=== PATIENT | male | born 1955 | race Caucasian/White ===

== ENCOUNTER 2020-02-28 14:48 | Inpatient (IN) | payer OTHER ==
[2020-02-28] MEDS ORDERED: Morphine 4 MG/ML VIAL ONE (15:12)
--- NOTE | 2020-02-28 15:21 | RAD ---
Chest one view HISTORY: Chest pain. FINDINGS: No comparison. FINDINGS: Cardiac silhouette is magnified and upper limits of normal in size. Shallow inspiration accentuates pulmonary markings. Mediastinum is midline. Multiple irregular shaped and varying shaped metallic densities project over the upper mid chest and the left shoulder. Appearance of metallic shrapnel. Subtle ill-defined areas of patchy parenchymal opacity project over the periphery of the left lower l obe and the posterior aspect of the right lower lobe. No evidence of pneumothorax. IMPRESSION : Subtle patchy bibasilar infiltrates. Clinical correlation regarding other signs and symptoms of CHF v ersus multifocal viral pneumonitis is required.
[2020-02-28 15:32] LABS: #Eosinphils 0.1 thou/uL (0.0-0.7); #Lymphocytes 1.1 thou/uL (1.20-3.40); #Monocytes 0.9 thou/uL (0.11-0.59); #Neutrophils 8.2 thou/uL (1.40-6.50); %Basophils 0.2 % (0.0-1.0); %Lymphocytes 10.6 % (21.0-51.0); %Monocytes 8.9 % (0.0-10.0); %Neutrophils 79.4 % (42.0-75.0); Hemoglobin 15.5 g/dL (14.0-18.0); Mean Corpuscular HGB CONC 33.8 g/dL (32.0-36.0); Mean Corpuscular Hemoglobin 30.8 pg (27.0-31.0); Mean Corpuscular Volume 91.1 fL (78.0-98.0); Mean Platelet Volume 8.3 fL (7.4-10.4); Platelet Count 146 thou/uL (130-400); RBC Distribution Width 12.5 % (11.5-14.5); Red Blood Cell (RBC) Count 5.04 mill/uL (4.70-6.10); White Blood Cell (WBC) Count 10.3 thou/uL (4.8-10.8)
[2020-02-28 15:50] LABS: ALT (SGPT) 56 U/L (8-55); AST (SGOT) 31 U/L (5-34); Albumin 3.9 g/dL (3.4-4.8); Alkaline Phosphatase 70 U/L (40-110); Anion Gap 16 mmol/L (10-20); BUN (Urea Nitrogen) 22 mg/dL (8.4-25.7); CK (CPK) 238 U/L (30-200); Calc. Creatinine Clearance 0 mL/min (70-130); Calcium 9.4 mg/dL (7.8-10.44); Carbon Dioxide 30 mmol/L (23-31); Chloride 90 mmol/L (98-107); Estimated GFR-MDRD 53; Globulin 3.7 g/dL (2.4-3.5); Glucose 443 mg/dL (80-115); Lipase 25 U/L (8-78); Potassium 4.1 mmol/L (3.5-5.1); Protein, Total 7.6 g/dL (5.8-8.1); Sodium 132 mmol/L (136-145)
[2020-02-28] MEDS ORDERED: Dextrose 5% in Water 1,000 ML IV PRN (18:56)
[2020-02-28] MEDS ORDERED: Dextrose 50% Abboject 50 ML SYRINGE SLOW IVP PRN (18:56)
[2020-02-28] MEDS ORDERED: Ondansetron ODT 4 MG TAB PO PRN (19:00)
[2020-02-28] MEDS ORDERED: Acetaminophen 325 MG TAB PO PRN (19:00)
[2020-02-28] MEDS ORDERED: HYDROcodone/Acetaminophen 5/325 mg Tablet PO PRN ×2 (19:00)
[2020-02-28] MEDS ORDERED: Ondansetron PF 4 MG/2 ML Vial IVP PRN (19:00)
[2020-02-28] MEDS ORDERED: Nitroglycerin 0.4 MG TAB (25 Tab Bottle) PO PRN (19:00)
[2020-02-28] MEDS ORDERED: Ipratropium Oral Inhaler INH PRN (19:03)
[2020-02-28] MEDS ORDERED: Ventolin HFA Inhaler 60 PUFF INHALER INH PRN (19:03)
--- NOTE | 2020-02-28 19:07 | PDOC.FPRHP ---
- History of Present Illness Chief Complaint: Chest pain History of Present Illness: 64-year-old male with a past medical history significant for lymphedema insulin- dependent diabetes mellitus and prostate cancer mr. Santiago reports that for the past three days hes had intermittent chest pain that is pressure like in nature in the center of his chest. He denies this is better or worse with activity, laying flat or sitting up. He denies any syncope new onset dyspnea or palpitations. He has no known history of heart disease. he does report however that for the past couple days hes also been feeling poorly not having as much of an appetite and subjective malaise. Denies fever new cough sick contacts or known exposures. ED Course: levaquin, morphine - Allergies/Adverse Reactions Allergies Allergy/AdvReac Type Severity Reaction Status Date / Time No Known Allergies Allergy Verified 02/28/20 22:36 - Home Medications Medication Instructions Recorded Confirmed Type Cephalexin 500 mg PO Q8H 02/28/20 02/28/20 History Ergocalciferol [Drisdol] 1 cap PO SEEPHYS 02/28/20 02/28/20 History Finasteride [Proscar] 5 mg PO DAILY 02/28/20 02/28/20 History Gabapentin [Neurontin] 800 mg PO TID 02/28/20 02/28/20 History HYDROcodone/Acetaminophen [[place] 1 tab PO QID PRN 02/28/20 02/28/20 History 10-325 Tablet] Insulin Aspart [Novolog] 80 units SQ AC 02/28/20 02/28/20 History Losartan Potassium [Cozaar] 1.5 tab PO DAILY 02/28/20 02/28/20 History Saxagliptin HCl [Onglyza] 5 mg PO DAILY 02/28/20 02/28/20 History Tamsulosin HCl [Flomax] 0.4 mg PO DAILY 02/28/20 02/28/20 History Torsemide [Demadex] 3 tab PO DAILY 02/28/20 02/28/20 History tiZANidine HCl [Tizanidine HCl] 4 mg PO Q6H 02/28/20 02/28/20 History traZODone HCl [Trazodone HCl] 2 tab PO HS 02/28/20 02/28/20 History - History PMHx:lymphedema, chronic pain, IDDM, COPD on 2L, HTN, prostate, CA, HLD PSHx: multiple ortho FHx:nc Social:former smoker, no AD - Review of Systems General: denies: fever/chills, weight/appetite/sleep changes Eyes: denies: vision changes ENT: denies: nasal congestion Respiratory: reports: cough, shortness of breath Cardiovascular: reports: chest pain, paroxysmal nocturnal dyspnea, orthopnea. denies: palpitation, edema Gastrointestinal: denies: nausea, vomiting, diarrhea Genitourinary: denies: incontinence, dysuria Skin: denies: rashes, lesions Musculoskeletal: denies: pain, tenderness Neurological: denies: numbness, syncope - Vital signs 150/108, Pulse: 100, Resp: 20, Temp: 99.1 (Oral), Pain: 8, O2 sat: 93 on (3L Oxygen) - Physical Exam Constitutional: NAD, awake, alert and oriented HEENT: normocephalic and atraumatic, grossly normal vision, grossly normal hearing Neck: trachea midline Chest: no-tender to palpation, no lesions Heart: RRR, normal S1/S2 Lungs: no respiratory distress, no wheezing, other (poor air movement, Crackles RLL) Abdomen: soft, non-tender Musculoskeletal: normal structure, normal tone Neurological: no focal deficit, CN II-XII intact Skin: no rash/lesions Heme/Lymphatic: no unusual bruising or bleeding Psychiatric: normal mood and affect FMR H&P: Results - Labs Result Diagrams: 02/29/20 04:32 02/29/20 04:32 Lab results: WBC 10.3 thou/uL (4.8-10.8) 02/28/20 15:21 Hgb 15.5 g/dL (14.0-18.0) 02/28/20 15:21 Hct 45.9 % (42.0-52.0) 02/28/20 15:21 MCV 91.1 fL (78.0-98.0) 02/28/20 15:21 Plt Count 146 thou/uL (130-400) 02/28/20 15:21 Neutrophils % 79.4 % (42.0-75.0) H 02/28/20 15:21 Sodium 132 mmol/L (136-145) L 02/28/20 15:21 Potassium 4.1 mmol/L (3.5-5.1) 02/28/20 15:21 Chloride 90 mmol/L (98-107) L 02/28/20 15:21 Carbon Dioxide 30 mmol/L (23-31) 02/28/20 15:21 BUN 22 mg/dL (8.4-25.7) 02/28/20 15:21 Creatinine 1.35 mg/dL (0.7-1.3) H 02/28/20 15:21 Glucose 443 mg/dL (80-115) H 02/28/20 15:21 Calcium 9.4 mg/dL (7.8-10.44) 02/28/20 15:21 Total Bilirubin 1.0 mg/dL (0.2-1.2) 02/28/20 15:21 AST 31 U/L (5-34) 02/28/20 15:21 ALT 56 U/L (8-55) H 02/28/20 15:21 Alkaline Phosphatase 70 U/L (40-110) 02/28/20 15:21 Creatine Kinase 238 U/L (30-200) H 02/28/20 15:21 B-Natriuretic Peptide 48.5 pg/mL (0-100) 02/28/20 15:21 Serum Total Protein 7.6 g/dL (5.8-8.1) 02/28/20 15:21 Albumin 3.9 g/dL (3.4-4.8) 02/28/20 15:21 Lipase 25 U/L (8-78) 02/28/20 15:21 FMR H&P: A/P - Problem List (1) HLD (hyperlipidemia) Current Visit: Yes Status: Acute Code(s): E78.5 - HYPERLIPIDEMIA, UNSPECIFIED (2) IDDM (insulin dependent diabetes mellitus) Current Visit: Yes Status: Acute Code(s): [id number] - (3) Lymphedema Current Visit: Yes Status: Acute Code(s): I89.0 - LYMPHEDEMA, NOT ELSEWHERE CLASSIFIED (4) CAP (community acquired pneumonia) Current Visit: Yes Status: Acute Code(s): J18.9 - PNEUMONIA, UNSPECIFIED ORGANISM (5) Chest pain Current Visit: Yes Status: Acute Code(s): R07.9 - CHEST PAIN, UNSPECIFIED (6) RUMA (acute kidney injury) Current Visit: Yes Status: Acute Code(s): N17.9 - ACUTE KIDNEY FAILURE, UNSPECIFIED - Plan chest pain - ekg, trop wnl. cxr shows b/l pna, procal/wbc wnl, no fever. - broad ddx at this point includes acs, pna, covid, msk, gerd. - further work up and eval pending - empirically treat for cap with rocephin/azithro RUMA - IVF resusc. monitor Lymphedema - continue home meds IDDM - aware, Mild SSI - continue home meds HLD - aware, continue home meds pcp: CC ppx: lovenox code: full dispo: admit to tele obs for further work up, treat for cap. FMR H&P: Upper Level - Plan Date/Time: 02/28/201904 I, [], have evaluated this patient and agree with findings/plan as outlined by actuarial intern resident. Pertinent changes/additions are listed here. Addendum - Attending - Attending Attestation Date/Time: 02/28/20 5203 I personally evaluated the patient and discussed the management with Dr. Champagne I agree with the History, Examination, Assessment and Plan documented above with any addition or exceptions noted below - 64-year-old male with h/o lymphedema, insulin-dependent diabetes mellitus, and prostate cancer reports that for the past three days hes had intermittent chest pain that is pressure like in nature in the center of his chest. Does not change activity, laying flat or sitting up. It does worsen with deep breath. He denies any syncope new onset dyspnea or palpitations. He has no known history of heart disease. Does report feeling poorly And not having as much of an appetite and subjective malaise for last few days. Denies fever, cough or sick contacts or known exposures. PMH/PSH/Meds/SH reviewed and agree with resident's documentation. Afebrile BP 141/96 P91 RR22 93% on RA Exam repeated by me and agree with resident's documentation. Labs: H/H=15.5/45.9m Asn=899, In=459, K=4.1, BUN/Cr=22 /1.35, Wcbv=636, procal=0.09, ASt /ALT=31/56. CXR- bibasilar patchy infiltrates. A/P: 1) CAP- Place in obs. Continue Rocephin and zithromax, albuterol MDI. COVID swab pending. 2) DM- continue home meds and monitor accuchecks. 3) Chest pain- Check serial cardiac enzymes. Suspect related to pneumonia.
[2020-02-28] MEDS ORDERED: Lactated Ringer's 1,000 ML IV SCH (20:45)
[2020-02-28] MEDS: Azithromycin 500 MG in Sodium Chloride 0.9% 250 ML 250 ML IVPB SCH (21:26)
[2020-02-28] MEDS: cefTRIAXone\\ROCEPHIN 1 GM in Sodium Chloride 0.9% 100 ML IVPB SCH (22:44)
[2020-02-28] MEDS: HumaLOG 300 UNITS/3 ML VIAL SC PRN (22:45)
[2020-02-28] MEDS ORDERED: traZODone HCl 50 MG TAB PO SCH (23:45)
[2020-02-28] MEDS: tiZANidine HCl 4 MG TAB PO SCH (23:45)
[2020-02-28] MEDS ORDERED: Gabapentin 400 MG CAP PO SCH (23:45)
[2020-02-29 01:52] VITALS: BMI 72.2
[2020-02-29] MEDS ORDERED: Morphine 4 MG/ML VIAL SLOW IVP SCH (02:00)
[2020-02-29] MEDS ORDERED: Morphine 10 MG/ML VIAL SLOW IVP SCH (04:30)
[2020-02-29] MEDS: Nitroglycerin 0.4mg/Hour PATCH TD SCH (04:54)
[2020-02-29 04:58] LABS: #Eosinphils 0.2 thou/uL (0.0-0.7); #Lymphocytes 1.3 thou/uL (1.20-3.40); #Monocytes 0.8 thou/uL (0.11-0.59); %Basophils 0.4 % (0.0-1.0); %Eosinophils 2.9 % (0.0-10.0); %Lymphocytes 17.9 % (21.0-51.0); %Monocytes 11.3 % (0.0-10.0); %Neutrophils 67.5 % (42.0-75.0); Hemoglobin 14.8 g/dL (14.0-18.0); Mean Corpuscular HGB CONC 31.9 g/dL (32.0-36.0); Mean Corpuscular Hemoglobin 29.1 pg (27.0-31.0); Mean Corpuscular Volume 91.1 fL (78.0-98.0); Platelet Count 164 thou/uL (130-400); RBC Distribution Width 12.4 % (11.5-14.5); Red Blood Cell (RBC) Count 5.07 mill/uL (4.70-6.10); White Blood Cell (WBC) Count 7.4 thou/uL (4.8-10.8)
[2020-02-29 05:20] LABS: ALT (SGPT) 49 U/L (8-55); AST (SGOT) 31 U/L (5-34); Albumin 3.6 g/dL (3.4-4.8); Alkaline Phosphatase 63 U/L (40-110); Anion Gap 12 mmol/L (10-20); BUN (Urea Nitrogen) 17 mg/dL (8.4-25.7); Bilirubin, Total 0.8 mg/dL (0.2-1.2); Calc. Creatinine Clearance 211 mL/min (70-130); Calcium 9.3 mg/dL (7.8-10.44); Carbon Dioxide 34 mmol/L (23-31); Cardiac Risk 5.7 (Less than 4.5); Chloride 95 mmol/L (98-107); Cholesterol 149 mg/dl (< 200 Desired); Estimated GFR-MDRD 68; Globulin 3.5 g/dL (2.4-3.5); Glucose 362 mg/dL (80-115); HDL Cholesterol 26 mg/dL (>60 Neg Risk); LDL Cholesterol, Calculated 96 mg/dL; Potassium 4.4 mmol/L (3.5-5.1); Protein, Total 7.1 g/dL (5.8-8.1); Sodium 137 mmol/L (136-145); Triglycerides 135 mg/dL (Less than 150)
[2020-02-29 05:23] LABS: Troponin I Less than 0.010 ng/mL (< 0.028)
[2020-02-29] MEDS: HYDROcodone/Acetaminophen 10/325 mg Tablet PO PRN ×2 (06:39→10:09)
[2020-02-29] MEDS: tiZANidine HCl 4 MG TAB PO SCH ×4 (06:39→23:30)
--- NOTE | 2020-02-29 07:25 | PDOC.FM ---
- Subjective Subjective: Pt reports he is having a pressure on his chest, not reproducible. He states the pain is still present. he states his SOB is improve somewhat and reports using oxygen at home. He is requesting dilaudid for his pain at this time. - Objective MAR Reviewed: Yes Vital Signs & Weight: Vital Signs (12 hours) Temp Pulse Resp BP Pulse Ox 02/29/20 04:04 98.1 F 91 18 158/64 H 95 02/29/20 01:03 97 F L 89 20 162/68 H 91 L Weight Weight 215.456 kg I&O: 02/28/20 02/29/20 03/01/20 06:59 06:59 06:59 Intake Total 500 Output Total 2000 Balance -1500 Result Diagrams: 02/29/20 04:32 02/29/20 04:32 Phys Exam - Physical Examination Constitutional: NAD HEENT: moist MMs Mild rhonchi on the left. Exam difficult due to body habitus Cardiovascular: RRR, no significant murmur Gastrointestinal: soft, no distention, positive bowel sounds Musculoskeletal: edema present (consistent with lymphedema) Neurological: moves all 4 limbs Skin: cap refill <2 seconds Dx/Plan (1) RUMA (acute kidney injury) Code(s): N17.9 - ACUTE KIDNEY FAILURE, UNSPECIFIED Status: Acute (2) CAP (community acquired pneumonia) Code(s): J18.9 - PNEUMONIA, UNSPECIFIED ORGANISM Status: Acute (3) Chest pain Code(s): R07.9 - CHEST PAIN, UNSPECIFIED Status: Acute (4) HLD (hyperlipidemia) Code(s): E78.5 - HYPERLIPIDEMIA, UNSPECIFIED Status: Acute (5) IDDM (insulin dependent diabetes mellitus) Code(s): [id number] - Status: Acute (6) Lymphedema Code(s): I89.0 - LYMPHEDEMA, NOT ELSEWHERE CLASSIFIED Status: Acute - Plan Plan: This is a 64 yo male with a pmh of Morbid obesity, IDDM2, HLD, lymphedema Acute hypoxic respiratory failure 2/2 CAP and likely related to obesity as well -Continue respiratory support -CXR shows bilateral pna -Procal neg, WBC wnl, afebrile -Continue rocephin/ azithro Chronic pain -PROMOTION MANAGER aware shows 4 norco per day -Continue medication Atypical chest pain -Will discuss case with cardiology when he is covid negative RUMA -Improving, will monitor Lymphedema -Continue home meds IDDM2 -Diabetes protocol per orders -Continue home meds -Adding lantus and atorvastatin for better control and risk reduction respectively -Pending A1c HLD -Atorvastatin BPH -Continue finasteride and Flomax Addendum - Attending - Attending Attestation Date/Time: 02/29/20 5917 I personally evaluated the patient and discussed the management with Dr. Herrmann. I agree with the History, Examination, Assessment and Plan documented above with any addition or exceptions noted below. chest pain likely related to pleuritis. negative trop. COVID r/o pending. will give toradol to help with CP. Low suspicion for ACS. Will consider cardiology consult tomorrow for NM stress vs cath.
[2020-02-29 08:30] LABS: Hemoglobin A1c 11.3 % (4.0-6.0)
[2020-02-29] MEDS ORDERED: Enoxaparin Sodium 40 MG/0.4 ML SYRINGE SC SCH (09:00)
[2020-02-29] MEDS ORDERED: Insulin Glargine 15 UNITS in Pre-Filled Syringe 1 EACH SC SCH (09:00)
[2020-02-29] MEDS ORDERED: Nitroglycerin 0.4mg/Hour PATCH TD SCH (09:00)
[2020-02-29] MEDS: HumaLOG 300 UNITS/3 ML VIAL SC SCH ×3 (10:07→17:41)
[2020-02-29] MEDS: Ergocalciferol 1.25 MG(50,000 UNITS) CAP PO SCH (10:08)
[2020-02-29] MEDS: Tamsulosin HCl 0.4 MG CAP PO SCH (10:08)
[2020-02-29] MEDS: Alogliptin 25 MG TAB PO SCH (10:08)
[2020-02-29] MEDS: Gabapentin 400 MG CAP PO SCH ×3 (10:08→20:07)
[2020-02-29] MEDS: Losartan 25 MG TAB PO SCH (10:08)
[2020-02-29] MEDS: Torsemide 20 MG TAB PO SCH (10:09)
[2020-02-29] MEDS: Finasteride 5 MG TAB PO SCH (10:09)
[2020-02-29] MEDS: Aspirin 325 mg Enteric Coated Tablet PO SCH (10:09)
[2020-02-29] MEDS ORDERED: Ketorolac Tromethamine 30 MG/ML VIAL IVP SCH (13:00)
--- NOTE | 2020-02-29 15:19 | EKG ---
Test Reason : Blood Pressure : / mmHG Vent. Rate : 106 BPM Atrial Rate : 122 BPM P-R Int : 000 ms QRS Dur : 148 ms QT Int : 406 ms P-R-T Axes : 000 -71 072 degrees QTc Int : 539 ms Atrial fibrillation with rapid ventricular response Right bundle branch block Left anterior fascicular block Bifascicular block Abnormal ECG Confirmed by BING PRICE ([id number]), field map editor VÍCTOR ROQUE ([id number]) on 02/29/2020 3:18:57 PM Referred By: Confirmed By:BING Herron
[2020-02-29] MEDS: Atorvastatin Calcium 40 MG TAB PO SCH (20:07)
[2020-02-29] MEDS: traZODone HCl 50 MG TAB PO SCH (20:07)
[2020-02-29] MEDS: Azithromycin 500 MG in Sodium Chloride 0.9% 250 ML 250 ML IVPB SCH (20:07)
[2020-02-29] MEDS: Ketorolac Tromethamine 30 MG/ML VIAL IVP PRN (20:21)
[2020-02-29] MEDS: HumaLOG 300 UNITS/3 ML VIAL SC PRN (20:50)
[2020-02-29] MEDS: cefTRIAXone\\ROCEPHIN 1 GM in Sodium Chloride 0.9% 100 ML IVPB SCH (21:51)
[2020-03-01] MEDS: Nitroglycerin 0.4mg/Hour PATCH TD SCH (05:23)
[2020-03-01] MEDS: tiZANidine HCl 4 MG TAB PO SCH ×4 (05:23→23:18)
--- NOTE | 2020-03-01 07:18 | PDOC.FM ---
- Subjective Subjective: Pt states his chest pain is still present but improved. He denies any previous history of arrythmias. He states his SOB is improved. - Objective MAR Reviewed: Yes Vital Signs & Weight: Vital Signs (12 hours) Temp Pulse Resp BP Pulse Ox 03/01/20 07:11 93 L 03/01/20 04:00 96.7 F L 92 18 139/64 93 L 03/01/20 00:00 97.8 F 77 18 117/64 95 02/29/20 20:00 95 Weight Weight 215.456 kg I&O: 02/29/20 03/01/20 03/02/20 06:59 06:59 06:59 Intake Total 500 960 Output Total 2000 1050 Balance -1500 -90 Result Diagrams: 02/29/20 04:32 03/01/20 07:26 Phys Exam - Physical Examination Constitutional: NAD HEENT: moist MMs Neck: no JVD Respiratory: no wheezing, clear to auscultation bilateral Cardiovascular: RRR irregular rhythm Gastrointestinal: soft, no distention, positive bowel sounds Musculoskeletal: edema present Neurological: moves all 4 limbs Skin: cap refill <2 seconds Dx/Plan (1) RUMA (acute kidney injury) Code(s): N17.9 - ACUTE KIDNEY FAILURE, UNSPECIFIED Status: Acute (2) CAP (community acquired pneumonia) Code(s): J18.9 - PNEUMONIA, UNSPECIFIED ORGANISM Status: Acute (3) Chest pain Code(s): R07.9 - CHEST PAIN, UNSPECIFIED Status: Acute (4) HLD (hyperlipidemia) Code(s): E78.5 - HYPERLIPIDEMIA, UNSPECIFIED Status: Acute (5) IDDM (insulin dependent diabetes mellitus) Code(s): [id number] - Status: Acute (6) Lymphedema Code(s): I89.0 - LYMPHEDEMA, NOT ELSEWHERE CLASSIFIED Status: Acute - Plan Plan: This is a 64 yo male with a pmh of Morbid obesity, IDDM2, HLD, lymphedema Acute hypoxic respiratory failure 2/2 CAP and likely related to obesity as well -Continue respiratory support -CXR shows bilateral pna -Procal neg, WBC wnl, afebrile -Continue rocephin/ azithro Chronic pain -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 -Continue medication -Toradol PRN Atrial fibrillation -Appears to be rate controlled -Therapeutic lovenox -Cardiology consult once covid is negative Atypical chest pain -Will discuss case with cardiology when he is covid negative RUMA -Improving, will monitor Lymphedema -Continue home meds IDDM2 -Diabetes protocol per orders -Continue home meds -Titrating lantus and atorvastatin for better glucose control and risk reduction respectively -A1c 11.3 HLD -Atorvastatin BPH -Continue finasteride and Flomax Addendum - Attending - Attending Attestation Date/Time: 03/01/20 9480 I personally evaluated the patient and discussed the management with Dr. Herrmann. I agree with the History, Examination, Assessment and Plan documented above with any addition or exceptions noted below. Appears to have new onset a-fib on telemetry. COVID screen pending. cards consult after COVID returns.
[2020-03-01 07:56] LABS: ALT (SGPT) 62 U/L (8-55); AST (SGOT) 50 U/L (5-34); Albumin 3.4 g/dL (3.4-4.8); Alkaline Phosphatase 58 U/L (40-110); Anion Gap 13 mmol/L (10-20); BUN (Urea Nitrogen) 16 mg/dL (8.4-25.7); Bilirubin, Total 0.6 mg/dL (0.2-1.2); Calc. Creatinine Clearance 224 mL/min (70-130); Calcium 8.6 mg/dL (7.8-10.44); Carbon Dioxide 29 mmol/L (23-31); Chloride 97 mmol/L (98-107); Estimated GFR-MDRD 73; Globulin 3.5 g/dL (2.4-3.5); Glucose 293 mg/dL (80-115); Potassium 4.6 mmol/L (3.5-5.1); Protein, Total 6.9 g/dL (5.8-8.1); Sodium 134 mmol/L (136-145)
[2020-03-01] MEDS: Enoxaparin Sodium 120 MG/0.8 ML SYRINGE SC SCH ×2 (08:11→19:56)
[2020-03-01] MEDS: HumaLOG 300 UNITS/3 ML VIAL SC SCH ×3 (08:12→18:15)
[2020-03-01] MEDS: Insulin Glargine 25 UNITS in Pre-Filled Syringe 1 EACH SC SCH (08:13)
[2020-03-01] MEDS: Torsemide 20 MG TAB PO SCH (08:13)
[2020-03-01] MEDS: Gabapentin 400 MG CAP PO SCH ×3 (08:14→19:58)
[2020-03-01] MEDS: Aspirin 325 mg Enteric Coated Tablet PO SCH (08:15)
[2020-03-01] MEDS: Losartan 25 MG TAB PO SCH (08:15)
[2020-03-01] MEDS: Alogliptin 25 MG TAB PO SCH (08:15)
[2020-03-01] MEDS: Finasteride 5 MG TAB PO SCH (08:37)
[2020-03-01] MEDS: Tamsulosin HCl 0.4 MG CAP PO SCH (08:37)
[2020-03-01] MEDS: Ketorolac Tromethamine 30 MG/ML VIAL IVP PRN ×2 (10:21→19:56)
[2020-03-01] MEDS ORDERED: Fluticasone Propionate Nasal Spray 16 gm Bottle NASAL PRN (11:03)
[2020-03-01] MEDS ORDERED: ALBUTEROL SULFATE IH PRN (11:09)
[2020-03-01] MEDS: HYDROcodone/Acetaminophen 10/325 mg Tablet PO PRN ×2 (12:14→18:14)
[2020-03-01] MEDS: traZODone HCl 50 MG TAB PO SCH (19:57)
[2020-03-01] MEDS: Atorvastatin Calcium 40 MG TAB PO SCH (19:57)
[2020-03-01] MEDS: Azithromycin 500 MG in Sodium Chloride 0.9% 250 ML 250 ML IVPB SCH (20:53)
[2020-03-01] MEDS: cefTRIAXone\\ROCEPHIN 1 GM in Sodium Chloride 0.9% 100 ML IVPB SCH (22:09)
[2020-03-02] MEDS: Ketorolac Tromethamine 30 MG/ML VIAL IVP PRN ×3 (04:06→20:15)
[2020-03-02] MEDS: Nitroglycerin 0.4mg/Hour PATCH TD SCH (04:06)
[2020-03-02] MEDS: tiZANidine HCl 4 MG TAB PO SCH ×4 (05:40→22:55)
--- NOTE | 2020-03-02 07:07 | PDOC.FM ---
- Subjective Subjective: Pt reports some sharp chest pain, same as before. He states the pain is worse when he takes a deep breath. He denies fever, chills, nauseas, or vomiting. He states his breathing is doing ok. He also mentioned today that he may have heard atrial fibrillation before but is unsure if he had previously been diagnosed. - Objective MAR Reviewed: Yes Vital Signs & Weight: Vital Signs (12 hours) Temp Pulse Resp BP Pulse Ox 03/02/20 04:00 97.2 F L 86 16 141/90 H 95 03/02/20 00:00 97.6 F 78 18 131/61 95 03/01/20 20:00 97.3 F L 86 18 154/72 H 94 L 03/01/20 19:57 94 L Weight Weight 215.456 kg I&O: 03/01/20 03/02/20 03/03/20 06:59 06:59 06:59 Intake Total 960 1850 Output Total 1050 975 Balance -90 875 Result Diagrams: 02/29/20 04:32 03/01/20 07:26 Phys Exam - Physical Examination Constitutional: NAD HEENT: moist MMs Neck: no JVD Respiratory: no wheezing, no rales Irregularly irregular, normal rate Gastrointestinal: soft, non-tender, no distention, positive bowel sounds Musculoskeletal: edema present (unchanged from before) Neurological: moves all 4 limbs Psychiatric: A&O x 3 Skin: cap refill <2 seconds Dx/Plan (1) RUMA (acute kidney injury) Code(s): N17.9 - ACUTE KIDNEY FAILURE, UNSPECIFIED Status: Acute (2) CAP (community acquired pneumonia) Code(s): J18.9 - PNEUMONIA, UNSPECIFIED ORGANISM Status: Acute (3) Chest pain Code(s): R07.9 - CHEST PAIN, UNSPECIFIED Status: Acute (4) HLD (hyperlipidemia) Code(s): E78.5 - HYPERLIPIDEMIA, UNSPECIFIED Status: Acute (5) IDDM (insulin dependent diabetes mellitus) Code(s): [id number] - Status: Acute (6) Lymphedema Code(s): I89.0 - LYMPHEDEMA, NOT ELSEWHERE CLASSIFIED Status: Acute - Plan Plan: This is a 64 yo male with a pmh of Morbid obesity, IDDM2, HLD, lymphedema Acute hypoxic respiratory failure 2/2 CAP and likely related to obesity as well -Continue respiratory support -CXR shows bilateral pna -Procal neg, WBC wnl, afebrile -Continue rocephin/ azithro Chronic pain -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 shows 4 norco per day -Continue medication -Toradol PRN Atrial fibrillation -Appears to be rate controlled -Therapeutic lovenox -Cardiology consult once covid is negative -Pending anti 10a levels today Atypical chest pain -Will discuss case with cardiology when he is covid negative RUMA -Improving, will monitor Lymphedema -Continue home meds IDDM2 -Diabetes protocol per orders -Continue home meds -Titrating lantus and atorvastatin for better glucose control and risk reduction respectively -A1c 11.3 HLD -Atorvastatin BPH -Continue finasteride and Flomax Addendum - Attending - Attending Attestation Date/Time: 03/02/20 6424 I personally evaluated the patient and discussed the management with Dr. Herrmann. I agree with the History, Examination, Assessment and Plan documented above with any addition or exceptions noted below. Still waiting for COVID to result. Chest pain c/w pleuricy and pain controlled with PRN toradol. Will have cardiology evaluate for possible new onset A-fib once COVID results. Patient states he may have had this diagnosed before so will attempt to obtain records from [facility]. Repeat CXR once COVID swab results. LOS still dependent upon COVID result but at this time have low clinical suspicion for COVID. Continue abx.
[2020-03-02] MEDS: Enoxaparin Sodium 120 MG/0.8 ML SYRINGE SC SCH ×2 (09:11→20:15)
[2020-03-02] MEDS: Insulin Glargine 25 UNITS in Pre-Filled Syringe 1 EACH SC SCH (09:11)
[2020-03-02] MEDS: Tamsulosin HCl 0.4 MG CAP PO SCH ×2 (09:12)
[2020-03-02] MEDS: HumaLOG 300 UNITS/3 ML VIAL SC SCH ×3 (09:12→16:10)
[2020-03-02] MEDS: Finasteride 5 MG TAB PO SCH ×2 (09:12)
[2020-03-02] MEDS: Torsemide 20 MG TAB PO SCH (09:12)
[2020-03-02] MEDS: Aspirin 325 mg Enteric Coated Tablet PO SCH (09:12)
[2020-03-02] MEDS: Losartan 25 MG TAB PO SCH (09:12)
[2020-03-02] MEDS: Alogliptin 25 MG TAB PO SCH (09:13)
[2020-03-02] MEDS: Gabapentin 400 MG CAP PO SCH ×3 (09:13→20:16)
[2020-03-02] MEDS: HYDROcodone/Acetaminophen 10/325 mg Tablet PO PRN (13:04)
[2020-03-02] MEDS: Atorvastatin Calcium 40 MG TAB PO SCH (20:16)
[2020-03-02] MEDS: traZODone HCl 50 MG TAB PO SCH (20:17)
[2020-03-02] MEDS: Azithromycin 500 MG in Sodium Chloride 0.9% 250 ML 250 ML IVPB SCH (20:17)
[2020-03-02] MEDS: cefTRIAXone\\ROCEPHIN 1 GM in Sodium Chloride 0.9% 100 ML IVPB SCH (21:44)
[2020-03-03] MEDS: Nitroglycerin 0.4mg/Hour PATCH TD SCH (04:55)
[2020-03-03] MEDS: tiZANidine HCl 4 MG TAB PO SCH ×3 (04:55→18:47)
[2020-03-03] MEDS: Ketorolac Tromethamine 30 MG/ML VIAL IVP PRN ×2 (04:55→10:17)
[2020-03-03] MEDS: HYDROcodone/Acetaminophen 10/325 mg Tablet PO PRN ×2 (05:11→12:09)
[2020-03-03 05:22] LABS: ALT (SGPT) 68 U/L (8-55); AST (SGOT) 49 U/L (5-34); Albumin 3.5 g/dL (3.4-4.8); Alkaline Phosphatase 59 U/L (40-110); Anion Gap 13 mmol/L (10-20); BUN (Urea Nitrogen) 20 mg/dL (8.4-25.7); Bilirubin, Total 0.4 mg/dL (0.2-1.2); Calc. Creatinine Clearance 186 mL/min (70-130); Carbon Dioxide 33 mmol/L (23-31); Chloride 96 mmol/L (98-107); Estimated GFR-MDRD 59; Globulin 3.2 g/dL (2.4-3.5); Glucose 204 mg/dL (80-115); Potassium 4.5 mmol/L (3.5-5.1); Protein, Total 6.7 g/dL (5.8-8.1); Sodium 137 mmol/L (136-145)
--- NOTE | 2020-03-03 06:06 | PDOC.FM ---
Addendum entered and electronically signed by Glenda Rivera MD 03/03/20 10:51 : A/P: Acute on chronic respiratory failure -On 3L [place] at baseline from OHS and COPD -Back at baseline Original Note: - Subjective Subjective: Doing well, back at baseline O2. Breathing at baseline. Still with pleuritc chest pain which is improved. Reports left lower extremity with some pain, more red than normal. - Objective Vital Signs & Weight: Vital Signs (12 hours) Temp Pulse Resp BP Pulse Ox 03/03/20 04:51 94 L 03/03/20 04:00 97.4 F L 74 18 132/83 94 L 03/02/20 23:20 97.1 F L 74 20 122/58 L 94 L 03/02/20 20:28 97 03/02/20 20:00 96.5 F L 66 20 132/78 97 Weight Weight 215.456 kg I&O: 03/01/20 03/02/20 03/03/20 06:59 06:59 06:59 Intake Total 960 1850 1500 Output Total 9626 999 5077 Balance -90 875 300 Result Diagrams: 02/29/20 04:32 03/03/20 04:48 Phys Exam - Physical Examination Constitutional: NAD morbid obeseity HEENT: sclera anicteric Neck: full ROM Respiratory: clear to auscultation bilateral nasal cannula present Cardiovascular: RRR, no significant murmur Gastrointestinal: non-tender 3+ edema in lower ertremities, left with tendenress to palpation, mild skin erythema Neurological: moves all 4 limbs Psychiatric: normal affect, A&O x 3 Dx/Plan (1) Acute respiratory failure with hypoxia Code(s): J96.01 - ACUTE RESPIRATORY FAILURE WITH HYPOXIA Status: Acute (2) RUMA (acute kidney injury) Code(s): N17.9 - ACUTE KIDNEY FAILURE, UNSPECIFIED Status: Acute (3) CAP (community acquired pneumonia) Code(s): J18.9 - PNEUMONIA, UNSPECIFIED ORGANISM Status: Acute (4) Chest pain Code(s): R07.9 - CHEST PAIN, UNSPECIFIED Status: Acute (5) HLD (hyperlipidemia) Code(s): E78.5 - HYPERLIPIDEMIA, UNSPECIFIED Status: Acute (6) IDDM (insulin dependent diabetes mellitus) Code(s): [id number] - Status: Acute (7) Lymphedema Code(s): I89.0 - LYMPHEDEMA, NOT ELSEWHERE CLASSIFIED Status: Acute - Plan Plan: This is a 64 yo male with a pmh of Morbid obesity, IDDM2, HLD, lymphedema Acute hypoxic respiratory failure 2/2 CAP and likely OHS -Oxygen requirement at baseline -CXR shows bilateral pna -Procal neg, WBC wnl, afebrile -Continue rocephin/ azithro Chronic pain -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 Chronic? 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 lovenox abx: cefepime, azithromycin dispo: pending clinical course Discussed with Dr. Little Addendum - Attending - Attending Attestation Date/Time: 03/03/20 1221 I personally evaluated the patient and discussed the management with Dr. Rivera. I agree with the History, Examination, Assessment and Plan documented above with any addition or exceptions noted below. Patient on baseline O2 requirement. Continues to have pleuritic pain, d/c Toradol due to RUMA and history of cardiac disease. Pain control for pleuritic pain. Will get LE dopplers to evaluate for DVT. On th. lovenox. Trying to determine if this Afib is new or chronic.
[2020-03-03] MEDS: Insulin Glargine 25 UNITS in Pre-Filled Syringe 1 EACH SC SCH (08:46)
[2020-03-03] MEDS: Alogliptin 25 MG TAB PO SCH (08:49)
[2020-03-03] MEDS: Finasteride 5 MG TAB PO SCH (08:50)
[2020-03-03] MEDS: Aspirin 325 mg Enteric Coated Tablet PO SCH (08:50)
[2020-03-03] MEDS: Enoxaparin Sodium 120 MG/0.8 ML SYRINGE SC SCH ×2 (08:50→21:18)
[2020-03-03] MEDS: Gabapentin 400 MG CAP PO SCH ×3 (08:51→21:18)
[2020-03-03] MEDS: Losartan 25 MG TAB PO SCH (08:51)
[2020-03-03] MEDS: Torsemide 20 MG TAB PO SCH (08:52)
[2020-03-03] MEDS: Tamsulosin HCl 0.4 MG CAP PO SCH (08:52)
[2020-03-03] MEDS: HumaLOG 300 UNITS/3 ML VIAL SC SCH ×3 (08:57→18:10)
--- NOTE | 2020-03-03 13:27 | ULT ---
BILATERAL LOWER EXTREMITY VENOUS DOPPLER ULTRASOUND: HISTORY: Bilateral lower extremity edema. TECHNIQUE: Curry scale ultrasound with color flow and spectral Doppler imaging of the deep venous systems of the lower extremities is performed bilaterally. FINDINGS: There is good flow, compression, and augmentation noted in the common femoral, femoral, deep femoral, popliteal, posterior tibial, and greater saphenous veins on either side. IMPRESSION: No evidence of deep vein thrombosis in either lower extremity. POS: [facility]
--- NOTE | 2020-03-03 17:14 | EKG ---
Test Reason : Blood Pressure : / mmHG Vent. Rate : 068 BPM Atrial Rate : 068 BPM P-R Int : 226 ms QRS Dur : 148 ms QT Int : 450 ms P-R-T Axes : 028 -59 049 degrees QTc Int : 478 ms Sinus rhythm with 1st degree A-V block Right bundle branch block Left anterior fascicular block Bifascicular block Poor anterior R wave progression Abnormal ECG with significant conduction abnormalities When compared with ECG of 28-FEB-2020 14:57, Sinus rhythm has replaced Atrial fibrillation Vent. rate has decreased BY 38 BPM Nonspecific T wave abnormality has replaced inverted T waves in Anterior leads QT has shortened Confirmed by DR. Katia FIORE ([id number]) on 03/03/2020 5:14:03 PM Referred By: SAMMIE *r Confirmed By:DR. Katia FIORE
[2020-03-03] MEDS: Azithromycin 500 MG in Sodium Chloride 0.9% 250 ML 250 ML IVPB SCH (21:17)
[2020-03-03] MEDS: traZODone HCl 50 MG TAB PO SCH (21:17)
[2020-03-03] MEDS: Atorvastatin Calcium 40 MG TAB PO SCH (21:18)
[2020-03-04] MEDS: tiZANidine HCl 4 MG TAB PO SCH ×4 (00:06→16:39)
[2020-03-04] MEDS: traZODone HCl 50 MG TAB PO SCH (00:06)
[2020-03-04] MEDS: cefTRIAXone\\ROCEPHIN 1 GM in Sodium Chloride 0.9% 100 ML IVPB SCH (00:41)
[2020-03-04 04:46] LABS: Hemoglobin 13.3 g/dL (14.0-18.0); Platelet Count 145 thou/uL (130-400)
[2020-03-04 05:09] LABS: ALT (SGPT) 67 U/L (8-55); AST (SGOT) 46 U/L (5-34); Albumin 3.4 g/dL (3.4-4.8); Alkaline Phosphatase 55 U/L (40-110); Anion Gap 11 mmol/L (10-20); BUN (Urea Nitrogen) 15 mg/dL (8.4-25.7); Bilirubin, Total 0.4 mg/dL (0.2-1.2); Calc. Creatinine Clearance 226 mL/min (70-130); Calcium 8.9 mg/dL (7.8-10.44); Carbon Dioxide 33 mmol/L (23-31); Chloride 97 mmol/L (98-107); Estimated GFR-MDRD 74; Globulin 3.2 g/dL (2.4-3.5); Glucose 240 mg/dL (80-115); Potassium 4.5 mmol/L (3.5-5.1); Protein, Total 6.6 g/dL (5.8-8.1); Sodium 136 mmol/L (136-145)
[2020-03-04] MEDS: HYDROcodone/Acetaminophen 10/325 mg Tablet PO PRN ×2 (05:12→11:53)
[2020-03-04] MEDS: Nitroglycerin 0.4mg/Hour PATCH TD SCH (05:12)
--- NOTE | 2020-03-04 06:30 | PDOC.FM ---
- Subjective Subjective: Patient reports much improvement today. Most concerned with getting HH to help with daily wound care. Chest pain much improved, still worse with breathing but has not changed or evolved since admission. - Objective MAR Reviewed: Yes Vital Signs & Weight: Vital Signs (12 hours) Temp Pulse Resp BP Pulse Ox 03/04/20 03:15 97.3 F L 88 18 138/67 95 03/04/20 00:30 96 03/03/20 22:40 98.6 F 75 19 168/77 H 96 03/03/20 19:35 98.7 F 73 25 H 130/83 95 Weight Weight 215.456 kg I&O: 03/02/20 03/03/20 03/04/20 06:59 06:59 06:59 Intake Total 1850 1500 3060 Output Total 975 1200 2300 Balance 875 300 760 Result Diagrams: 03/04/20 04:35 03/04/20 04:35 Phys Exam - Physical Examination Constitutional: NAD HEENT: moist MMs no respiratory distress, resting comfortably on nasal cannula oxygen Cardiovascular: RRR, no significant murmur Gastrointestinal: soft, no distention 2+ lymphedema in legs, no pain to palpation Neurological: non-focal, moves all 4 limbs Psychiatric: normal affect, A&O x 3 Dx/Plan (1) Acute respiratory failure with hypoxia Code(s): J96.01 - ACUTE RESPIRATORY FAILURE WITH HYPOXIA Status: Acute (2) RUMA (acute kidney injury) Code(s): N17.9 - ACUTE KIDNEY FAILURE, UNSPECIFIED Status: Acute (3) CAP (community acquired pneumonia) Code(s): J18.9 - PNEUMONIA, UNSPECIFIED ORGANISM Status: Acute (4) Chest pain Code(s): R07.9 - CHEST PAIN, UNSPECIFIED Status: Acute (5) HLD (hyperlipidemia) Code(s): E78.5 - HYPERLIPIDEMIA, UNSPECIFIED Status: Acute (6) IDDM (insulin dependent diabetes mellitus) Code(s): SBD2640 - Status: Acute (7) Lymphedema Code(s): I89.0 - LYMPHEDEMA, NOT ELSEWHERE CLASSIFIED Status: Acute - Plan Plan: This is a 64 yo male with a pmh of Morbid obesity, IDDM2, HLD, lymphedema Acute on chronic hypoxic respiratory failure 2/2 CAP -Oxygen requirement at baseline 2-3L (from COPD, OHS) -CXR shows bilateral pna -Procal neg, WBC wnl, afebrile -Continue rocephin/ azithro -will switch to PO abx today Chronic pain -MARINE INSULATOR aware shows 4 norco per day -Continue medication -No toradol d/t h/o heart disease & RUMA/CKD Paroxysmal Atrial fibrillation -Afib on admission, converted to NSR 03/03 -Therapeutic lovenox, confirmed with anti Xa -Based on cardiology records, doesn't seem like has had dx of Afib before but incomplete records & patient is unsure. -CHADSVASC: 2, HASBLED:1. -after discussion patient agreeable to anticoagulation. discussed risks & benefits. Will work with CM to see what pt can afford Pleuritic chest pain -Likely 2/2 to infectious pulmonary processes -B/L LE Dopplers negative RUMA -Improving, will monitor Lymphedema -Continue home meds -Wound care IDDM2 -Diabetes protocol per orders -Resume home meds -Titrating lantus and atorvastatin for better glucose control and risk reduction respectively -A1c 11.3% HLD -Atorvastatin BPH -Continue finasteride and Flomax dvt ppx: th. lovenox abx: cefepime, azithromycin dispo: stable for d/c today pending anticoagulation Discussed with Dr. Little Addendum - Attending - Attending Attestation Date/Time: 03/04/20 1285 I personally evaluated the patient and discussed the management with Dr. Rivera. I agree with the History, Examination, Assessment and Plan documented above with any addition or exceptions noted below. Patient stable. Afib is chronic, currently in NSR. Open to anticoagulation. Working to get him home shortly.
[2020-03-04] MEDS: Insulin Glargine 25 UNITS in Pre-Filled Syringe 1 EACH SC SCH (08:07)
[2020-03-04] MEDS: Enoxaparin Sodium 120 MG/0.8 ML SYRINGE SC SCH (08:08)
[2020-03-04] MEDS: Losartan 25 MG TAB PO SCH (08:08)
[2020-03-04] MEDS: Aspirin 325 mg Enteric Coated Tablet PO SCH (08:08)
[2020-03-04] MEDS: Finasteride 5 MG TAB PO SCH (08:09)
[2020-03-04] MEDS: Gabapentin 400 MG CAP PO SCH ×2 (08:09→14:08)
[2020-03-04] MEDS: Torsemide 20 MG TAB PO SCH (08:09)
[2020-03-04] MEDS: Tamsulosin HCl 0.4 MG CAP PO SCH (08:09)
[2020-03-04] MEDS: Alogliptin 25 MG TAB PO SCH (08:10)
[2020-03-04] MEDS: HumaLOG 300 UNITS/3 ML VIAL SC SCH ×3 (08:10→16:39)
[2020-03-04] MEDS: Ergocalciferol 1.25 MG(50,000 UNITS) CAP PO SCH (08:27)
[2020-03-04] MEDS ORDERED: Nitroglycerin 0.4mg/Hour PATCH TD SCH (09:00)
[2020-03-04] MEDS: HumaLOG 300 UNITS/3 ML VIAL SC PRN ×2 (11:53→16:39)
[2020-03-04 15:57] VITALS: BP 144/80; TEMP 97.7
[2020-03-04] MEDS ORDERED: Apixaban 5 MG TAB PO SCH (21:00)
[2020-03-05] MEDS ORDERED: Aspirin 81 mg Enteric Coated Tablet PO SCH (09:00)
--- NOTE | 2020-03-05 11:05 | DIS ---
DATE OF ADMISSION: 02/28/2020 DATE OF DISCHARGE: 03/04/2020 ADMITTING ATTENDING: Nessa Green MD DISCHARGE ATTENDING: Nima Little MD RESIDENT: Glenda Rivera, PGY-2 CONSULTS: 1. Physical Therapy. 2. Wound Care. 3. Case Management. PRIMARY DIAGNOSES: 1. Acute on chronic hypoxic respiratory failure secondary to community-acquired pneumonia. 2. Paroxysmal atrial fibrillation-acute versus chronic? 3. Pleuritic chest pain, likely secondary to above. 4. Chronic pain. 5. Acute kidney injury on chronic kidney disease. 6. Insulin-dependent type 2 diabetes, uncontrolled. 7. Prolonged QT. SECONDARY DIAGNOSES: 1. BPH. 2. Prostate cancer. 3. Hyperlipidemia. 4. Lymphedema. 5. Obesity. 6. Obesity hypoventilation syndrome. 7. COPD. 8. Chronic hypoxic respiratory failure secondary to above, normally on 2 L to 3 L. 9. Type 1 heart block and right bundle-branch block. PROCEDURES AND IMAGIN. Bilateral lower extremity venogram. No evidence of DVT in either lower extremity. 2. Chest x-ray. Subtle patchy bibasilar infiltrates. DISCHARGE MEDICATIONS: New home medications: 1. Eliquis 5 mg p.o. b.i.d. 2. Lipitor 40 mg p.o. at bedtime. 3. Flonase. 4. Aspirin 81 mg p.o. daily. 5. Cefdinir 300 mg p.o. q.12 hours for two more days. 6. Azithromycin 250 mg p.o. daily for two more days. Resume home medications: 1. Atrovent 1 puff inhaled q.i.d. p.r.n. for short of breath. 2. Ventolin two puffs inhaled q.4 hours p.r.n. shortness of breath. 3. Flomax 0.4 mg p.o. daily. 4. Proscar 5 mg p.o. daily. 5. [place] 10/325 one tab p.o. q.i.d. p.r.n. for pain. 6. Gabapentin 800 mg p.o. t.i.d. 7. Torsemide 20 mg three tabs p.o. daily. 8. Saxagliptin 5 mg p.o. daily. 9. Cozaar 50 mg 1.5 tabs p.o. daily. 10. Ergocalciferol 1.25 mg capsule one cap p.o. daily. 11. NovoLog 80 units subcu before meals. 12. Lantus 25 mg subcu at bedtime. Discontinued medications: 1. Trazodone 100 mg two tabs p.o. at bedtime. 2. Cephalexin 500 mg p.o. q.8 hours. 3. Tizanidine 4 mg p.o. q.6 hours. HISTORY OF PRESENT ILLNESS/HOSPITAL COURSE: Mr. Ramon Santiago is a 64-year-old male, with significant history for chronic respiratory failure secondary to OHS and COPD, lymphedema, and uncontrolled insulin-dependent diabetes type 2, who presented to the ER for atpyical chest pain. He was admitted for ACS rule out in which troponins and EKG were unremarkable. His chest pain was more pleuritic in nature and chest x-ray did show signs of bilateral patchy infiltrates thus he was empirically treated community-acquired pneumonia and tested for COVID which was negative. He initially required just increased amount of his normal baseline oxygen, which is 2 to 3 L, but improved over the next couple of days. With a high Wells score he had bilateral LE dopplers which were negative. He couldn't undergo CT scan for PE due to body weight. Pleuritic chest pain was improved- This was likely thought to be due to the inflammatory processes. A repeat EKG was done, which showed a [address] elevation in aVF. However, in light of negative troponins and atypical chest pain, a stress test was not ordered but recommended to see a driver courier outpatient. It is recommended to continue his community-acquired pneumonia antibiotics for 7-day duration. IDDM2: Uncontrolled with A1 of 11.3% due to noncompliance. Restarted his meds. Will need to continue outpatient titration. Interested in nutrition/dietary counseling. Chronic Lymphedema: Status quo. Set him up with Home Health to help with wound care dressing. No signs of infection at this time. Podiatry referral needed on outpt. Paroxysmal atrial fibrillation-acute versus chronic: Unknown if patient has received this dx even upon review of requested OP cardiology records. He spontaneously converted to NSR during hospital stay. CHADSVASC =2, HASBLED =1 (for us starting anticoag). After shared decision making he was started on Eliquis. We continued ASA for his diabetes. Discussed bleeding risk and monitoring. Recommend follow up with cardiology for further management of anticoag/ antiplatelet. Prolonged QT: Patient was found to have a prolonged QT of 539 which improved to 478 and then 491. 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 Will need outpt repeat EKG. COVID status: Patient is COVID negative. SUMMARY: Overall, it was thought that patient's chest pain was pleuritic in nature being attributed to a viral vs bacterial pneumonia. His exam was not consistent with that of a CHF exacerbation with a BNP of 48.5. He had never been given the diagnosis of heart failure and upon request of records, his echo in 2018 showed a normal ejection fraction. We did not repeat one here in the hospital since he was euvolemic. I expect that his pleuritic chest pain will improve as he completes his course of antibiotics. If not, there is always a possibility of considering a PE since we were unable to get a CTA, however, unlikely so in light of negative Dopplers. Patient could benefit from an outpatient stress test workup due to his multiple comorbidities, recommend following up on that outpatient. In addition, he will need continued titration of his insulin in order to help with his diabetes and this is discussed with the patient. In addition, patient has underlying MICHELLE in which he does not wear his CPAP, we would recommend getting him a CPAP machine in the outpatient setting. In regard to his AFib, he will be placed on anticoagulation and was discussed to monitor for signs of bleeding. Needs outpatient referral to Cardiology. Needs optimal medical management of his risk factors in regard to his AFib, which could either be caused by uncontrolled diabetes versus MICHELLE versus intrinsic heart disease. DISPOSITION: Stable. DISCHARGE INSTRUCTIONS: 1. Location: Home. 2. Diet: Heart-healthy, carb consistent. 3. Activity: Ad daisy as tolerated. 4. Followup instructions: a. Please follow up with [facility], plans to follow up with Dr. Tavarez routine care b. Follow up with Cardiology to consider outpatient stress testing and for paroxysmal afib, further recs on anticoagulation & antiplatelet management c. Please follow up to obtain CPAP machine. d. Consider repeat EKG to make sure QTc prolongation has resolved. e. Continue insulin titration f. Nutrition referral at f/u visit g. Consider podiatry referral for chronic lymphedema Job ID: [id number] CHIP
--- NOTE | 2020-03-05 12:47 | EKG ---
Test Reason : Blood Pressure : / mmHG Vent. Rate : 071 BPM Atrial Rate : 071 BPM P-R Int : 204 ms QRS Dur : 160 ms QT Int : 452 ms P-R-T Axes : 022 -64 067 degrees QTc Int : 491 ms Normal sinus rhythm Right bundle branch block Left anterior fascicular block Bifascicular block Abnormal ECG When compared with ECG of 02-MAR-2020 13:30, No significant change was found Confirmed by DR. Serene IRWIN ([id number]) on 03/05/2020 12:46:36 PM Referred By: Albert HOLCOMB *R Confirmed By:DR. Serene IRWIN
== END 2020-03-04 18:38 | disposition home or self-care (01) | DRG 193 ==
LOC: ERS 14:48 → 2SW 17:19 → OBSVTOIN 17:19
PROVIDERS: ADMIT Family Medicine; ATTEND Family Medicine
DX: J18.9 Pneumonia, unspecified organism (principal); J96.21 Acute and chronic respiratory failure with hypoxia; N17.9 Acute kidney failure, unspecified; Z68.45 Body mass index [BMI] 70 or greater, adult; J44.0 Chronic obstructive pulmonary disease with (acute) lower respiratory infection; E66.2 Morbid (severe) obesity with alveolar hypoventilation; I10 Essential (primary) hypertension; E78.5 Hyperlipidemia, unspecified; I89.0 Lymphedema, not elsewhere classified; Z20.828 Contact with and (suspected) exposure to other viral communicable diseases; G89.29 Other chronic pain; N40.0 Benign prostatic hyperplasia without lower urinary tract symptoms; E11.9 Type 2 diabetes mellitus without complications; I48.0 Paroxysmal atrial fibrillation; Z79.4 Long term (current) use of insulin; Z90.49 Acquired absence of other specified parts of digestive tract; Z85.46 Personal history of malignant neoplasm of prostate; Z79.899 Other long term (current) drug therapy; Z99.81 Dependence on supplemental oxygen; Z87.891 Personal history of nicotine dependence
CPT/HCPCS: 36415; 36416; 71045; 80053; 80061; 82550; 83036; 83690; 83880; 84145; 84484; 85014; 85018; 85025; 85049; 85520; 87635; 93005; 93010; 93970; 94760; 96365; 96366; 96375; J0456; J0696; J1650; J1815; J1885; J1956; J2270; J3490; J7050; U0002